=== PATIENT | female | born 1970 | race Caucasian/White ===

== ENCOUNTER 2018-11-13 17:01 | Emergency (ER) | payer OTHER ==
[~2018-11-13] VITALS: Ht 167.6 cm; Wt 71.7 kg
[~2018-11-13 17:01] MED LIST: ZYRTEC10 M3 PO
--- OUTSIDE RECORDS SUMMARY | 2018-11-13 17:04 | XMS REPORT | Summary of Care ---
Author Author [facility] Outpatient Imaging - [facility] Outpatient Imaging - [facility] Address Unknown Phone Unavailable Encounter HQ Elontr_sam(FIN) [id number] Date(s): 04/21/16 - 04/21/16 [facility] Outpatient Imaging [facility] [address] [phone] Discharge Disposition: Home or Self Care Attending Physician: David Tubbs MD Vital Signs No data available for this section Problem List No data available for this section Allergies, Adverse Reactions, Alerts No data available for this section Medications No data available for this section Results No data available for this section Immunizations No data available for this section Procedures No data available for this section Social History No data available for this section Assessment and Plan No data available for this section
--- OUTSIDE RECORDS SUMMARY | 2018-11-13 17:04 | XMS REPORT | Continuity of Care Document ---
Author Author [facility] Organization Interface Address Unknown Phone Unavailable Problems Problem Status Onset Date Classification Date Reported Comments Source Z12.31 - ENCNTR SCREEN MAMMOGRAM FOR MA Active 02/10/2016 [facility] Medications Medication Details Route Status Patient Instructions Ordering Provider Order Date Source Allergies, Adverse Reactions, Alerts Substance Category Reaction Severity Reaction type Status Date Reported Comments Source Immunizations Immunization Date Given Site Status Last Updated Comments Source Results Order Name Results Value Reference Range Date Interpretation Comments Source Digital Mammo Screening Shayna MA Digital Mammo Screening Shayna MA - DIGITAL MAMMO SCREENING SHAYNA MA BILATERAL DIGITAL SCREENING MAMMOGRAM WITH CAD: 04/21/2016 CLINICAL: Routine. Current study was evaluated with a Computer Aided Detection (CAD) system. Comparison is made to exams dated: 03/26/2015 mammogram, 11/19/2014 mammogram, 03/31/2014 mammogram, 03/24/2014 stereotactic biopsy, 03/11/2014 mammogram and 03/11/2014 ultrasound - [facility]. There are scattered fibroglandular densities in both breasts. There is a biopsy clip in the left breast. Bilateral subpectoral saline implants are present. Implants may obscure breast parenchyma, making mammographic interpretation difficult. No significant masses, calcifications, or other findings are seen in either breast. IMPRESSION: BENIGN There is no mammographic evidence of malignancy. A 1 year screening mammogram is recommended. Dunia Steven M.D. acb/penrad:04/25/2016 08:34:35 Wire Turning Machine Operator: Mary Ríos, [facility] This exam was dictated and interpreted by [id number] for [facility]. letter sent: Bilateral Benign Mammogram BI-RADS: 2 Benign 04/21/2016 - - Read by: Dunia Steven MD Dictated Date/time: 04/25/16 08:34 Electronically Signed by: Dunia Steven MD 04/25/16 08:34 FINAL REPORT [facility] Vital Signs Vital Sign Value Date Comments Source Encounters Location Location Details Encounter Type Encounter Number Reason For Visit Attending Provider ADM Date DC Date Status Source [facility] - [facility] [id number] David Tubbs 04/21/2016 04/22/2016 [facility] Procedures Procedure Code Date Perfomer Comments Source
--- OUTSIDE RECORDS SUMMARY | 2018-11-13 17:04 | XMS REPORT ---
Author Author [facility] Address Unknown Phone Unavailable Care Team Providers Care Nursing Administrator Name Role Phone EMMA MERIDA Unavailable Unavailable Problems This patient has no known problems. Allergies, Adverse Reactions, Alerts This patient has no known allergies or adverse reactions. Medications This patient has no known medications. Results Test Description Test Time Test Comments Text Results Atomic Results Result Comments CHEST 2 VIEWS [place] [address] Patient Name: NASIMA ANDREWS MR #: [id number] : 1970 Age/Sex: 47/F Req #: [id number] Adm Physician: Ordered by: EMMA MERIDA MD Report #: [id number] Location: OR Room/Bed: Procedure: [id number] DX/CHEST 2 VIEWS Exam Date: 04/24/17 Exam Time: 927 REPORT STATUS: Signed PROCEDURE: X-RAY CHEST, TWO VIEWS COMPARISON: None. INDICATIONS: PRE OP LUMBAR SPINE SURGERY FINDINGS: LUNGS: No consolidations or edema. PLEURA: No effusions or pneumothorax. HEART T MEDIASTINUM: The heart is within normal size-limits. BONES T SOFT TISSUES: No acute findings. CONCLUSION: No acute thoracic abnormality. Jeremie Brown D.O. Dictated by: Jeremie Brown D.O. on 04/24/2017 at 10:54 Electronically approved by: Jeremie Brown D.O. on 04/24/2017 at 10:54 Dictated By: JEREMIE BROWN DO 1054 Transcribed By: ANGELO on 04/24/17 1054 COPY TO: EMMA MERIDA MD
[2018-11-13] MEDS ORDERED: XOLAIR150 MG (17:16)
[2018-11-13] MEDS ORDERED: SODIUM CHLORIDE 0.9% 1000ML 1,000 ML IV STA (17:59)
[2018-11-13] MEDS ORDERED: ONDANSETRON HCL INJ 2MG/ML 2ML 2 MG/ML VIAL IV ONE (18:15)
[2018-11-13] MEDS ORDERED: MORPHINE SULFATE INJ 4 MG/ML INJ 1ML IV ONE (18:15)
[2018-11-13] MEDS ORDERED: KETOROLAC TROMETHAMINE 30 MG/ML VIAL IV ONE (18:30)
[2018-11-13 18:33] LABS: CLARITY,URINE SL CLOUDY (CLEAR); COLOR,URINE YELLOW (YELLOW)
[2018-11-13 18:34] LABS: BILIRUBIN,URINE NEGATIVE (NEGATIVE); KETONES,URINE 1+ (NEGATIVE); LEUKOCYTE ESTERASE ,URINE NEGATIVE (NEGATIVE); NITRITE,URINE NEGATIVE (NEGATIVE); PROTEIN,URINE DIPSTICK NEGATIVE (NEGATIVE); URINE UROBILINOGEN 0.2 mg/dL (0.2 - 1)
[2018-11-13 18:41] LABS: BACTERIA,URINE MODERATE /HPF; EPITHELIAL CELLS,URINE MODERATE /LPF; MUCUS,URINE MODERATE (RARE); RBC,URINE 0-5 /HPF (0-5)
--- NOTE | 2018-11-13 19:09 | Diagnostic Imaging Report ---
EXAM: CT Abdomen chest, and Pelvis WITHOUT contrast INDICATION: Back pain. Kidney stone. Hysterectomy breast augmentation. Cholecystectomy. Hysterectomy. Back surgery. Shortness of breath COMPARISON: None. TECHNIQUE: Chest, Abdomen and pelvis were scanned utilizing a multidetector helical scanner without administration of IV contrast. Absence of intravenous contrast decreases sensitivity for detection of focal lesions and vascular pathology. Coronal and sagittal reformations were obtained. Routine protocol was performed. IV CONTRAST: None ORAL CONTRAST: Water COMPLICATIONS: None RADIATION DOSE: Total DLP: 662.92 mGy*cm Estimated effective dose: (DLP x 0.015 x size factor) mSv CTDIvol has been reviewed. It is below the limits set by the Radiation Protocol Committee (RPC). Dose modulation, iterative reconstruction, and/or weight based adjustment of the mA/kV was utilized to reduce the radiation dose to as low as reasonably achievable. FINDINGS: LINES and TUBES: None. LUNGS AND AIRWAYS: The lungs are unremarkable. Airways are normal. PLEURA: The pleural spaces are clear. HEART AND MEDIASTINUM: The thyroid gland is normal. No mediastinal, hilar or axillary lymphadenopathy. The heart is normal in size.. There is no pericardial effusion. Bilateral breast implants. HEPATOBILIARY: No focal hepatic lesions. No biliary ductal dilation. GALLBLADDER: Cholecystectomy SPLEEN: No splenomegaly. PANCREAS: No focal masses or ductal dilatation. ADRENALS: No adrenal nodules KIDNEYS/URETERS: No hydronephrosis. No cystic or solid mass lesions. No stones. GI TRACT: No abnormal distention, wall thickening, or evidence of bowel obstruction. Appendix is normal. PELVIC ORGANS/BLADDER: Unremarkable. LYMPH NODES: No lymphadenopathy. VESSELS: Unremarkable. PERITONEUM / RETROPERITONEUM: No free air or fluid. BONES: Unremarkable. SOFT TISSUES: Unremarkable. IMPRESSION: No urinary tract calcifications are seen. There is no hydronephrosis, hydroureter or perinephric fat stranding. Moderate amount of retained feces could be due to constipation. No acute cardiopulmonary abnormality. Signed by: Dr. Mina Lawler M.D. on 11/13/2018 7:06 PM
[2018-11-13 19:14] LABS: BASOPHILS # (AUTO) 0.1 (0.0-0.1); BASOPHILS % 0.7 % (0.0-1.0); EOSINOPHILS # (AUTO) 0.1 (0.0-0.4); EOSINOPHILS % 0.9 % (0.0-6.0); HEMATOCRIT 37.9 % (34.2-44.1); HEMOGLOBIN 12.7 g/dL (12.0-16.0); LYMPHOCYTES # (AUTO) 1.6 (1.0-3.2); LYMPHOCYTES % 22.8 % (18.0-39.1); MEAN CORPUSCULAR HEMOGLOBIN 29.8 pg (28-32); MEAN CORPUSCULAR HGB CONC 33.5 g/dL (31-35); MONOCYTES # (AUTO) 0.4 (0.2-0.8); MONOCYTES % 5.3 % (4.4-11.3); NEUTROPHILS # (AUTO) 4.9 (2.1-6.9); PLATELET COUNT 233 x10e3/uL (140-360); RED BLOOD COUNT 4.26 x10e6/uL (3.6-5.1); RED CELL DISTRIBUTION WIDTH 13.5 % (11.7-14.4)
--- NOTE | 2018-11-13 19:20 | NUR ---
VERBAL REPORT GIVEN TO RAUDEL MACKENZIE.
[2018-11-13 19:23] LABS: INR 0.95; PROTHROMBIN TIME 13.2 seconds (11.9-14.5)
[2018-11-13 19:24] LABS: PARTIAL THROMBOPLASTIN TIME 31.7 seconds (23.8-35.5)
[2018-11-13 19:33] LABS: ALANINE AMINOTRANSFERASE 8 IU/L (0-55); ALBUMIN 3.9 g/dL (3.5-5.0); ALBUMIN/GLOBULIN RATIO 1.1 (0.8-2.0); ALKALINE PHOSPHATASE 66 IU/L (40-150); BLOOD UREA NITROGEN 11 mg/dL (7-26); BUN/CREATININE RATIO 15 (6-25); CALCIUM 9.3 mg/dL (8.4-10.2); CARBON DIOXIDE 23 mmol/L (22-29); CHLORIDE 108 mmol/L (98-107); CREATINE KINASE 54 IU/L (29-168); CREATININE, SERUM 0.73 mg/dL (0.57-1.11); EST GLOMERULAR FILTRATION RATE > 60 ML/MIN (60-); GLUCOSE 83 mg/dL (74-118); MAGNESIUM 2.2 MG/DL (1.3-2.1); SODIUM 139 mmol/L (136-145)
[2018-11-13 20:54] VITALS: BP 120/94
== END 2018-11-13 21:15 | disposition home or self-care (01) ==
LOC: ER 17:01
DX: M54.5 Low back pain (principal); S39.012A Strain of muscle, fascia and tendon of lower back, initial encounter; M54.6 Pain in thoracic spine
CPT/HCPCS: 36415; 71250; 74176; 80053; 81001; 82550; 82553; 83735; 83880; 84484; 85025; 85379; 85610; 85730; 93005; 99284; J1885